=== PATIENT | male | born 1980 | race African-American/Black ===

== ENCOUNTER 2024-05-08 22:23 | Emergency (ER) | payer SELFPAY ==
[~2024-05-08] VITALS: Ht 180.3 cm; Wt 80.0 kg
[~2024-05-08 22:23] MED LIST: ALBU17AE26
[2024-05-08 22:27] VITALS: O2SAT 97
[2024-05-08] MEDS: SODIUM CHLORIDE 0.9% 1,000 ML IV ONE (22:45)
[2024-05-08] MEDS: LORAZEPAM 1MG TABLET PO ONE (22:45)
[2024-05-08 23:54] LABS: CHLORIDE 103 mEq/L (98-107); POTASSIUM 3.1 mEq/L (3.5-5.1); SODIUM 134 mEq/L (136-145)
[2024-05-08 23:55] LABS: CALCIUM 10.4 mg/dL (8.7-10.4); CARBON DIOXIDE 21 mEq/L (21-32)
[2024-05-08 23:57] LABS: BASOPHILS % 0.1 % (0.0-2.0); EOSINOPHILS % 0.1 % (0.0-5.0); HEMATOCRIT. 40.9 % (42.0-52.0); HEMOGLOBIN. 13.9 g/dL (14.0-18.0); LYMPHOCYTES % 7.1 % (20.0-50.0); MEAN CORPUSCULAR HEMOGLOBIN 32.8 pg (28.0-32.0); MEAN CORPUSCULAR HGB CONC 33.9 g/dL (31.0-37.0); MEAN PLATELET VOLUME 9.1 fl (7.4-10.4); NEUTROPHILS % 86.7 % (40.0-76.0); PLATELET 164 x1000/uL (130-400); RED BLOOD CELL COUNT 4.22 mill/uL (4.7-6.1); RED CELL DISTRIBUTION WIDTH 13.5 % (11.6-14.6); WHITE BLOOD COUNT 12.1 x1000/uL (4.5-11.0)
[2024-05-09] LABS: CREATININE 0.9 mg/dL (0.6-1.3); GLUCOSE 114 mg/dL (70-105); UREA NITROGEN BLOOD 5 mg/dL (9-23)
[2024-05-09 00:02] LABS: TROPONIN I HIGH SENSITIVITY 8 ng/L (3.0-53)
[2024-05-09 00:08] LABS: *AMPHETAMINES SCREEN URINE NEGATIVE (NEGATIVE); *BARBITURATES SCREEN URINE NEGATIVE (NEGATIVE); *BENZODIAZEPINES SCREEN URINE NEGATIVE (NEGATIVE); *COCAINE SCREEN URINE NEGATIVE (NEGATIVE); CANNABINOID URINE SCREEN PRESUMPTIVE POSITIVE (NEGATIVE); ECSTASY MDMA SCREEN URINE NEGATIVE (NEGATIVE); METHADONE URINE SCREEN NEGATIVE (NEGATIVE); OPIATES URINE SCREEN NEGATIVE (NEGATIVE); PHENCYCLIDINE URINE SCREEN NEGATIVE (NEGATIVE)
[2024-05-09 00:15] LABS: ETHANOL BLOOD < 10 mg/dL (<10)
[2024-05-09] MEDS ORDERED: IOHEXOL-350 100 ML BOTTLE ONE (04:50)
[2024-05-09] MEDS ORDERED: LEVO-65 PO (07:16)
[2024-05-09] MEDS ORDERED: TOPUD PO (07:16)
[2024-05-09 08:05] VITALS: BP 118/75; PULSE 74; RESP 18; TEMP 98.3
== END 2024-05-09 08:06 | disposition home or self-care (01) ==
LOC: ER 22:23
DX: R06.02 Shortness of breath (principal); T50.905A Adverse effect of unspecified drugs, medicaments and biological substances, initial encounter; F41.9 Anxiety disorder, unspecified; F10.20 Alcohol dependence, uncomplicated; J45.909 Unspecified asthma, uncomplicated; F14.90 Cocaine use, unspecified, uncomplicated; F15.90 Other stimulant use, unspecified, uncomplicated; Z88.6 Allergy status to analgesic agent; Y92.89 Other specified places as the place of occurrence of the external cause
CPT/HCPCS: 80305; 80048; 80320; 83880; 85025; 85379; 84484; 36415; 71045; 93005; 96360; 99285; 71275; J7030; Z7610; Q9967; G0480

== ENCOUNTER 2024-05-19 13:41 | Emergency (ER) | payer SELFPAY ==
[~2024-05-19] VITALS: Ht 172.7 cm; Wt 73.0 kg
[~2024-05-19 13:41] MED LIST changes: +LEVO-65 PO; +TOPUD PO
[2024-05-19] MEDS ORDERED: IPRATROPIUM BROMIDE (0.02%) 0.5MG/2.5ML NEB HHN STA (13:57)
[2024-05-19] MEDS ORDERED: METHYLPREDNISOLONE SOD SUCC 125MG/2ML (ACT-O-VIAL) IV STA (13:57)
[2024-05-19] MEDS ORDERED: DEXAMETHASONE 10 MG/ML VIAL IV ONE (14:00)
[2024-05-19 14:09] VITALS: PULSE 91; RESP 18; O2SAT 98
[2024-05-19] MEDS: DEXAMETHASONE 10 MG/ML VIAL IV NR (14:09)
[2024-05-19] MEDS: ALBUTEROL (0.083%) 2.5MG/3ML NEB HHN SCH (14:09)
[2024-05-19] MEDS: IPRATROPIUM BROMIDE (0.02%) 0.5MG/2.5ML NEB HHN NR (14:10)
[2024-05-19 14:25] VITALS: PULSE 87; RESP 18; O2SAT 99
[2024-05-19 14:36] LABS: BASOPHILS % 0.7 % (0.0-2.0); EOSINOPHILS % 0.3 % (0.0-5.0); HEMATOCRIT. 39.7 % (42.0-52.0); HEMOGLOBIN. 13.2 g/dL (14.0-18.0); LYMPHOCYTES % 20.4 % (20.0-50.0); MEAN CORPUSCULAR HGB CONC 33.3 g/dL (31.0-37.0); MEAN CORPUSCULAR VOLUME 99.2 fL (80.0-94.0); MONOCYTES % 7.3 % (2.0-8.0); NEUTROPHILS % 71.3 % (40.0-76.0); PLATELET 230 x1000/uL (130-400); RED CELL DISTRIBUTION WIDTH 13.7 % (11.6-14.6); WHITE BLOOD COUNT 7.6 x1000/uL (4.5-11.0)
[2024-05-19 14:41] LABS: CHLORIDE 102 mEq/L (98-107); POTASSIUM 3.5 mEq/L (3.5-5.1); SODIUM 137 mEq/L (136-145)
[2024-05-19 14:42] LABS: CARBON DIOXIDE 23 mEq/L (21-32)
[2024-05-19 14:43] LABS: CALCIUM 9.4 mg/dL (8.7-10.4)
[2024-05-19 14:47] VITALS: PULSE 78; RESP 18; O2SAT 99
[2024-05-19 14:47] LABS: CREATININE 0.9 mg/dL (0.6-1.3); GLUCOSE 129 mg/dL (70-105); UREA NITROGEN BLOOD 11 mg/dL (9-23)
[2024-05-19 14:48] LABS: TROPONIN I HIGH SENSITIVITY 6 ng/L (3.0-53)
[2024-05-19 15:52] VITALS: BP 109/62; PULSE 97; RESP 20; TEMP 98.2
== END 2024-05-19 16:00 | disposition home or self-care (01) ==
LOC: ER 13:51
DX: J45.901 Unspecified asthma with (acute) exacerbation (principal); F10.20 Alcohol dependence, uncomplicated; F41.9 Anxiety disorder, unspecified; F12.90 Cannabis use, unspecified, uncomplicated; F15.90 Other stimulant use, unspecified, uncomplicated; Z88.6 Allergy status to analgesic agent; Y90.9 Presence of alcohol in blood, level not specified
CPT/HCPCS: 80048; 85025; 84484; 36415; 71045; 94640; 93005; 96374; 99291; J1100; Z7610 ×3

== ENCOUNTER 2024-07-10 17:03 | Emergency (ER) | payer MEDICAID ==
[~2024-07-10] VITALS: Ht 175.3 cm; Wt 85.0 kg
[2024-07-10 17:07] VITALS: TEMP 98.2; O2SAT 96
[2024-07-10] MEDS: MECLIZINE 25MG TABLET PO ONE (17:25)
[2024-07-10] MEDS: SODIUM CHLORIDE 0.9% 1,000 ML IV ONE (17:25)
[2024-07-10 18:00] LABS: BASOPHILS % 1.1 % (0.0-2.0); EOSINOPHILS % 3.7 % (0.0-5.0); HEMOGLOBIN. 12.4 g/dL (14.0-18.0); LYMPHOCYTES % 40.5 % (20.0-50.0); MEAN CORPUSCULAR HEMOGLOBIN 32.6 pg (28.0-32.0); MEAN CORPUSCULAR HGB CONC 33.7 g/dL (31.0-37.0); MEAN PLATELET VOLUME 8.6 fl (7.4-10.4); MONOCYTES % 8.6 % (2.0-8.0); NEUTROPHILS % 46.1 % (40.0-76.0); PLATELET 122 x1000/uL (130-400); RED BLOOD CELL COUNT 3.81 mill/uL (4.7-6.1); RED CELL DISTRIBUTION WIDTH 13.2 % (11.6-14.6); WHITE BLOOD COUNT 4.4 x1000/uL (4.5-11.0)
[2024-07-10 18:05] LABS: CHLORIDE 106 mEq/L (98-107); POTASSIUM 3.5 mEq/L (3.5-5.1); SODIUM 140 mEq/L (136-145)
[2024-07-10 18:06] LABS: CARBON DIOXIDE 23 mEq/L (21-32)
[2024-07-10 18:07] LABS: CALCIUM 9.6 mg/dL (8.7-10.4)
[2024-07-10 18:11] LABS: CREATININE 0.9 mg/dL (0.6-1.3); GLUCOSE 93 mg/dL (70-105)
[2024-07-10 18:12] LABS: UREA NITROGEN BLOOD 11 mg/dL (9-23)
[2024-07-10] MEDS ORDERED: MECL-299 MT (18:31)
[2024-07-10 18:45] VITALS: BP 121/76; PULSE 86; RESP 18; O2SAT 98
== END 2024-07-10 18:46 | disposition home or self-care (01) ==
LOC: ER 17:03
DX: R42 Dizziness and giddiness (principal); F10.20 Alcohol dependence, uncomplicated; F41.9 Anxiety disorder, unspecified; J45.909 Unspecified asthma, uncomplicated; F12.90 Cannabis use, unspecified, uncomplicated; F15.90 Other stimulant use, unspecified, uncomplicated; Z88.6 Allergy status to analgesic agent
CPT/HCPCS: 80048; 85025; 36415; 71045; 96360; 99284; J8597; J7030; Z7610 ×3

== ENCOUNTER 2025-05-06 10:35 | Emergency (ER) | payer MEDICAID, OTHER ==
[~2025-05-06] VITALS: Ht 177.8 cm; Wt 75.0 kg
[~2025-05-06 10:35] MED LIST changes: +MECL-299 MT
[2025-05-06 10:37] VITALS: O2SAT 98
[2025-05-06 11:41] VITALS: BP 139/96; PULSE 87; RESP 14; TEMP 37.1; O2SAT 99
== END 2025-05-06 11:45 | disposition home or self-care (01) ==
LOC: ER 10:35
DX: F10.129 Alcohol abuse with intoxication, unspecified (principal); F41.9 Anxiety disorder, unspecified; F12.90 Cannabis use, unspecified, uncomplicated; F15.90 Other stimulant use, unspecified, uncomplicated; J45.909 Unspecified asthma, uncomplicated; Z88.5 Allergy status to narcotic agent; Z79.899 Other long term (current) drug therapy; Y90.9 Presence of alcohol in blood, level not specified
CPT/HCPCS: 99283